=== PATIENT | female | born 1980 | race American Indian/Alaskan Native ===

== ENCOUNTER 2016-10-19 22:35 | Emergency (ER) | payer OTHER ==
[2016-10-19 22:48] VITALS: BP 193/126
[2016-10-19] MEDS ORDERED: NORVASC PO ONE (23:09)
[2016-10-19] MEDS ORDERED: TYLENOL PO ONE (23:17)
[2016-10-20 01:01] LABS: Bilirubin,Urine NEG (Negative); Blood,Urine NEG (Negative); Ketones,Urine NEG (Negative); Leukocyte Esterase,Urine NEG (Negative); Mucus,Urine FEW /HPF; Nitrite,Urine NEG (Negative); Protein,Urine <15 mg/dL mg/dL (Negative); Urobilinogen,Urine < 2.0 mg/dL (<2.0); WBC,Urine < 1.0 /HPF (0.0-6.0)
[2016-10-20 02:34] LABS: Basophils % (Auto) 0.3 % (0.0-1.8); Eosinophils % (Auto) 0.1 % (0.0-4.3); Hematocrit 39.4 % (30.3-42.9); Hemoglobin 12.7 gm/dl (10.1-14.3); Mean Corpuscular HGB Conc 32 % (30-34); Mean Corpuscular Hemoglobin 29 pg (28-32); Mean Corpuscular Volume 90 fl (79-97); Platelet Count 276 K/mm3 (140-440); Red Blood Count 4.39 M/mm3 (3.65-5.03); Red Cell Distribution Width 13.6 % (13.2-15.2); White Blood Count 11.7 K/mm3 (4.5-11.0)
[2016-10-20 02:50] LABS: Alanine Aminotransferase 10 units/L (7-56); Albumin 4.3 g/dL (3.9-5); Albumin/Globulin Ratio 1.2 %; Alkaline Phosphatase 112 units/L (35-129); BUN/Creatinine Ratio 13.33; Bilirubin,Total 0.3 mg/dL (0.1-1.2); Blood Urea Nitrogen 8 mg/dL (7-17); Calcium 9.2 mg/dL (8.4-10.2); Carbon Dioxide 26 mmol/L (22-30); Chloride 100.7 mmol/L (98-107); Glucose 123 mg/dL (65-100); Lipase 24 units/L (13-60); Potassium 4.3 mmol/L (3.6-5.0); Sodium 141 mmol/L (137-145)
[2016-10-20 02:52] LABS: Anion Gap 19 mmol/L
--- NOTE | 2016-10-21 18:44 | ED Elopement Review ---
ED Pt Elopement review - Results review Lab results: Laboratory Tests 10/20/16 10/20/16 10/20/16 00:25 02:07 02:07 WBC 11.7 H RBC 4.39 Hgb 12.7 Hct 39.4 MCV 90 MCH 29 MCHC 32 RDW 13.6 Plt Count 276 Lymph % (Auto) 10.4 L Early % (Auto) 1.5 Eos % (Auto) 0.1 Baso % (Auto) 0.3 Lymph # 1.2 Early # 0.2 Eos # 0.0 Baso # 0.0 Seg Neutrophils % 87.7 H Seg Neutrophils # 10.3 H Sodium 141 Potassium 4.3 Chloride 100.7 Carbon Dioxide 26 Anion Gap 19 BUN 8 Creatinine 0.6 L Estimated GFR > 60 BUN/Creatinine Ratio 13.33 Glucose 123 H Calcium 9.2 Total Bilirubin 0.3 AST 13 ALT 10 Alkaline Phosphatase 112 Total Protein 8.0 Albumin 4.3 Albumin/Globulin Ratio 1.2 Lipase 24 HCG, Qual Urine Color Yellow Urine Turbidity Cloudy Urine pH 8.0 H Ur Specific [place] 1.014 Urine Protein <15 mg/dl Urine Glucose (UA) Neg Urine Ketones Neg Urine Blood Neg Urine Nitrite Neg Urine Bilirubin Neg Urine Urobilinogen < 2.0 Ur Leukocyte Esterase Neg Urine WBC (Auto) < 1.0 Urine RBC (Auto) 3.0 U Epithel Cells (Auto) 3.0 Amorphous Crystals 3+ Urine Mucus Few Urine HCG, Qual Negative 10/20/16 02:17 WBC RBC Hgb Hct MCV MCH MCHC RDW Plt Count Lymph % (Auto) Early % (Auto) Eos % (Auto) Baso % (Auto) Lymph # Early # Eos # Baso # Seg Neutrophils % Seg Neutrophils # Sodium Potassium Chloride Carbon Dioxide Anion Gap BUN Creatinine Estimated GFR BUN/Creatinine Ratio Glucose Calcium Total Bilirubin AST ALT Alkaline Phosphatase Total Protein Albumin Albumin/Globulin Ratio Lipase HCG, Qual Negative Urine Color Urine Turbidity Urine pH Ur Specific [place] Urine Protein Urine Glucose (UA) Urine Ketones Urine Blood Urine Nitrite Urine Bilirubin Urine Urobilinogen Ur Leukocyte Esterase Urine WBC (Auto) Urine RBC (Auto) U Epithel Cells (Auto) Amorphous Crystals Urine Mucus Urine HCG, Qual - Call Back decision Pt Call Back Decision: No action required
== END 2016-10-20 02:18 | disposition left against medical advice (07) ==
LOC: ED 22:35
DX: R10.10 Upper abdominal pain, unspecified (principal); R11.2 Nausea with vomiting, unspecified; Z53.21 Procedure and treatment not carried out due to patient leaving prior to being seen by health care provider
CPT/HCPCS: 36415; 80053; 81001; 81025; 83690; 84703; 85025

== ENCOUNTER 2017-07-22 03:39 | Emergency (ER) | payer OTHER, MEDICAID ==
[2017-07-22] MEDS ORDERED: TYLENOL PO ONE (05:06)
[2017-07-22] MEDS ORDERED: TORADOL IV ONE (05:06)
[2017-07-22] MEDS ORDERED: TORADOL ONE (05:14)
[2017-07-22] MEDS ORDERED: TYLENOL ONE (05:14)
[2017-07-22 05:28] LABS: Bilirubin,Urine NEG (Negative); Blood,Urine LG (Negative); Ketones,Urine NEG (Negative); Leukocyte Esterase,Urine NEG (Negative); Nitrite,Urine NEG (Negative); Protein,Urine <15 mg/dL mg/dL (Negative); Urobilinogen,Urine < 2.0 mg/dL (<2.0)
[2017-07-22 05:46] LABS: Hemoglobin 9.2 gm/dl (10.1-14.3); Mean Corpuscular HGB Conc 33 % (30-34); Mean Corpuscular Hemoglobin 28 pg (28-32); Mean Corpuscular Volume 85 fl (79-97); Platelet Count 278 K/mm3 (140-440); Red Blood Count 3.27 M/mm3 (3.65-5.03); Red Cell Distribution Width 13.6 % (13.2-15.2); White Blood Count 7.5 K/mm3 (4.5-11.0)
[2017-07-22 06:13] LABS: Alanine Aminotransferase 11 units/L (7-56); Albumin 2.6 g/dL (3.9-5); Albumin/Globulin Ratio 0.8 %; Alkaline Phosphatase 91 units/L (35-129); Anion Gap 17 mmol/L; BUN/Creatinine Ratio 12; Blood Urea Nitrogen 6 mg/dL (7-17); Calcium 8.3 mg/dL (8.4-10.2); Carbon Dioxide 22 mmol/L (22-30); Chloride 106.3 mmol/L (98-107); Glucose 90 mg/dL (65-100); Sodium 141 mmol/L (137-145); Total Protein 5.8 g/dL (6.3-8.2)
[2017-07-22] MEDS ORDERED: NORMODYNE PO ONE ×2 (07:00→07:25)
--- NOTE | 2017-07-22 07:04 | Emergency Department Report ---
ED Headache HPI - General Chief Complaint: High BP Stated Complaint: HEADACHE Time Seen by Provider: 07/22/17 06:14 Source: patient Exam Limitations: no limitations - History of Present Illness Initial Comments: 36-year-old female with a past medical history of hypertension and migraines presents to the hospital complaints of headache and elevated blood pressure. Patient has had elevated blood pressure and has been off hypertensive medications this delivery of her first child in 2005. Patient just had a C- section delivery about one week ago. During her patient's blood pressure was controlled with labetalol 200 mg twice a day but was increased to 300 mg twice a day after her delivery. Patient denies having preeclampsia or eclampsia. Yesterday patient had a continuous frontal headache and when she checked her blood pressure systolic was 200 and diastolic was approximately 110s. She has been compliant with her labetalol last dose last evening. She's complained of lower extremity edema since her delivery. She also has had ongoing lower abdominal pain secondary to . Allergies/Adverse Reactions: Allergies No Known Allergies Allergy (Unverified 12/10/15 18:06) Home Medications: Ambulatory Orders Acetaminophen/Codeine [Tylenol #3] 1 tab PO Q6H PRN #15 tab 12/10/15 methOCARBAMOL [Robaxin TAB] 500 mg PO BID #20 tab 12/10/15 Docusate Sodium [Stool Softener] 100 mg PO BID 07/22/17 Ferrous Sulfate [Feosol] 325 mg PO BID 07/22/17 Ibuprofen [Motrin 800 MG tab] 800 mg PO TID PRN 07/22/17 Labetalol HCl 300 mg PO BID 07/22/17 Oxycodone HCl/Acetaminophen [Percocet 2.5/325 mg] 5 - 325 mg PO Q6HR PRN oxyCODONE /ACETAMINOPHEN [Percocet 5/325] 1 tab PO Q6HR PRN 07/22/17 ED Review of Systems ROS: Stated complaint: HEADACHE Other details as noted in HPI Comment: All other systems reviewed and negative Other: Constitutional: No fevers chills Eyes: No eye pain visual changes ENT: No ear pain or throat pain Neck: Denies pain Respiratory: Denies cough wheezing shortness of breath Cardiovascular: Denies chest pain, palpitations, syncope GI: Denies nausea, vomiting, diarrhea : Denies dysuria Musculoskeletal: Denies back pain Skin: Denies rash, lesions, erythema Neurologic: As per HPI, denies weakness or numbness Psychiatric: Denies suicidal ideation, hallucinations ED Past Medical Hx - Past Medical History Hx Hypertension: Yes Hx Headaches / Migraines: Yes - Surgical History Additional Surgical History: right arm surgery. x 3. GALLBLADDER - Social History Smoking Status: Never Smoker Substance Use Type: None - Medications Home Medications: Home Medications Medication Instructions Recorded Confirmed Last Taken Type Acetaminophen/Codeine [Tylenol #3] 1 tab PO Q6H PRN #15 tab 12/10/15 07/22/17 Unknown Rx methOCARBAMOL [Robaxin TAB] 500 mg PO BID #20 tab 12/10/15 07/22/17 Unknown Rx Docusate Sodium [Stool Softener] 100 mg PO BID 07/22/17 07/22/17 Unknown History Ferrous Sulfate [Feosol] 325 mg PO BID 07/22/17 07/22/17 Unknown History Ibuprofen [Motrin 800 MG tab] 800 mg PO TID PRN 07/22/17 07/22/17 Unknown History Labetalol HCl 300 mg PO BID 07/22/17 07/22/17 Unknown History Oxycodone HCl/Acetaminophen 5 - 325 mg PO Q6HR PRN 07/22/17 07/22/17 Unknown History [Percocet 2.5/325 mg] oxyCODONE /ACETAMINOPHEN [Percocet 1 tab PO Q6HR PRN 07/22/17 07/22/17 Unknown History 5/325] ED Physical Exam - General Limitations: No Limitations - Other Other exam information: General: No limitations, patient is alert in no acute distress Head exam: Atraumatic, normocephalic Eyes exam: Normal appearance, pupils equal reactive to light, extraocular movements intact ENT: Moist mucous membrane, normal oropharynx Neck exam: Normal inspection, full range of motion, no meningismus nontender Respiratory exam: Clear to auscultation bilateral, no wheezes, rales, crackles Cardiovascular: Normal rate and rhythm, normal heart sounds Abdomen: Soft, nondistended, with normal bowel sounds, no rebound, or guarding. Tender in lower abdomen, scar without erythema or dehiscence Extremity: Full range of motion normal inspection no deformit, no pitting edema noted Back: Normal Inspection, full range of motion, no tenderness Neurologic: Alert, oriented x3, cranial nerves intact, no motor or sensory deficit Psychiatric: normal affect, normal mood Skin: Warm, dry, intact ED Course Vital Signs 07/22/17 07/22/17 07/22/17 03:51 03:56 03:59 Temperature 98.8 F Pulse Rate Respiratory Rate Blood Pressure 155/83 Blood Pressure [Left] O2 Sat by Pulse 100 98 99 Oximetry 07/22/17 07/22/17 07/22/17 04:00 04:03 04:05 Temperature Pulse Rate 99 H 97 H 103 H Respiratory 21 24 14 Rate Blood Pressure 145/86 145/86 145/86 Blood Pressure [Left] O2 Sat by Pulse 99 99 99 Oximetry 07/22/17 07/22/17 07/22/17 04:07 04:09 04:11 Temperature Pulse Rate 102 H 102 H 103 H Respiratory 22 22 20 Rate Blood Pressure 145/86 145/86 145/86 Blood Pressure [Left] O2 Sat by Pulse 99 100 99 Oximetry 07/22/17 07/22/17 07/22/17 04:13 04:15 04:27 Temperature Pulse Rate 103 H 107 H 98 H Respiratory 22 15 14 Rate Blood Pressure 145/86 145/86 145/86 Blood Pressure [Left] O2 Sat by Pulse 99 98 Oximetry 07/22/17 07/22/17 07/22/17 04:28 04:30 04:33 Temperature Pulse Rate 90 97 H 100 H Respiratory 11 L 26 H 27 H Rate Blood Pressure 144/82 145/76 145/76 Blood Pressure [Left] O2 Sat by Pulse 99 99 99 Oximetry 07/22/17 07/22/17 07/22/17 04:35 04:37 04:39 Temperature Pulse Rate 95 H 97 H 93 H Respiratory 17 28 H 11 L Rate Blood Pressure 145/76 145/76 145/76 Blood Pressure [Left] O2 Sat by Pulse 99 100 100 Oximetry 07/22/17 07/22/17 07/22/17 04:41 04:43 04:45 Temperature Pulse Rate 94 H 91 H 93 H Respiratory 17 18 24 Rate Blood Pressure 145/76 145/76 158/94 Blood Pressure [Left] O2 Sat by Pulse 100 99 98 Oximetry 07/22/17 07/22/17 07/22/17 04:47 04:49 05:27 Temperature Pulse Rate 94 H 91 H 81 Respiratory 17 13 24 Rate Blood Pressure 158/94 158/94 161/89 Blood Pressure [Left] O2 Sat by Pulse 100 99 97 Oximetry 07/22/17 07/22/17 07/22/17 05:29 05:31 05:33 Temperature Pulse Rate 81 84 97 H Respiratory 14 27 H 22 Rate Blood Pressure 161/89 161/89 161/89 Blood Pressure [Left] O2 Sat by Pulse 98 98 98 Oximetry 07/22/17 07/22/17 07/22/17 05:35 05:37 05:39 Temperature Pulse Rate 89 84 86 Respiratory 19 23 24 Rate Blood Pressure 161/89 161/89 161/89 Blood Pressure [Left] O2 Sat by Pulse 99 100 99 Oximetry 07/22/17 07/22/17 07/22/17 05:41 05:43 05:45 Temperature Pulse Rate 87 95 H 87 Respiratory 22 19 18 Rate Blood Pressure 161/89 161/89 154/88 Blood Pressure [Left] O2 Sat by Pulse 99 99 98 Oximetry 07/22/17 07/22/17 07/22/17 05:47 05:49 05:51 Temperature Pulse Rate 85 86 83 Respiratory 24 24 28 H Rate Blood Pressure 154/88 154/88 154/88 Blood Pressure [Left] O2 Sat by Pulse 99 99 98 Oximetry 07/22/17 07/22/17 07/22/17 05:53 05:55 05:57 Temperature Pulse Rate 85 85 81 Respiratory 22 25 H 25 H Rate Blood Pressure 154/88 154/88 154/88 Blood Pressure [Left] O2 Sat by Pulse 98 98 99 Oximetry 07/22/17 07/22/17 07/22/17 05:58 06:10 06:13 Temperature Pulse Rate 82 86 Respiratory 21 13 Rate Blood Pressure 154/88 154/88 162/84 Blood Pressure [Left] O2 Sat by Pulse 98 99 98 Oximetry 07/22/17 07/22/17 07/22/17 06:15 06:16 06:19 Temperature Pulse Rate 82 83 83 Respiratory 23 29 H 30 H Rate Blood Pressure 167/80 167/80 167/80 Blood Pressure [Left] O2 Sat by Pulse 97 97 98 Oximetry 07/22/17 07/22/17 07/22/17 06:21 06:23 06:25 Temperature Pulse Rate 78 84 87 Respiratory 18 16 22 Rate Blood Pressure 167/80 167/80 167/80 Blood Pressure [Left] O2 Sat by Pulse 99 99 98 Oximetry 07/22/17 07/22/17 07/22/17 06:27 06:29 06:30 Temperature Pulse Rate 85 93 H 87 Respiratory 22 14 25 H Rate Blood Pressure 167/80 167/80 160/89 Blood Pressure [Left] O2 Sat by Pulse 100 99 100 Oximetry 07/22/17 07/22/17 07/22/17 06:33 06:35 06:37 Temperature Pulse Rate 90 91 H 86 Respiratory 19 13 22 Rate Blood Pressure 160/89 160/89 160/89 Blood Pressure [Left] O2 Sat by Pulse 99 100 98 Oximetry 07/22/17 07/22/17 07/22/17 06:39 06:41 06:43 Temperature Pulse Rate 87 89 87 Respiratory 14 27 H 25 H Rate Blood Pressure 160/89 160/89 160/89 Blood Pressure [Left] O2 Sat by Pulse 99 100 99 Oximetry 07/22/17 07/22/17 07/22/17 06:45 06:47 06:49 Temperature Pulse Rate 87 94 H 86 Respiratory 28 H 16 16 Rate Blood Pressure 149/86 149/86 149/86 Blood Pressure [Left] O2 Sat by Pulse 97 100 100 Oximetry 07/22/17 07/22/17 07/22/17 06:51 06:53 06:55 Temperature Pulse Rate 87 88 82 Respiratory 12 19 16 Rate Blood Pressure 154/88 154/88 154/88 Blood Pressure [Left] O2 Sat by Pulse 99 100 99 Oximetry 07/22/17 07/22/17 07/22/17 06:57 06:59 07:00 Temperature Pulse Rate 83 92 H 88 Respiratory 17 16 13 Rate Blood Pressure 154/88 154/88 146/75 Blood Pressure [Left] O2 Sat by Pulse 98 97 98 Oximetry 07/22/17 07/22/17 07/22/17 07:03 07:05 07:07 Temperature Pulse Rate 91 H 88 90 Respiratory 18 19 21 Rate Blood Pressure 146/75 146/75 146/75 Blood Pressure [Left] O2 Sat by Pulse 98 99 98 Oximetry 07/22/17 07/22/17 07/22/17 07:09 07:11 07:13 Temperature Pulse Rate 85 99 H 83 Respiratory 24 16 12 Rate Blood Pressure 146/75 146/75 146/75 Blood Pressure [Left] O2 Sat by Pulse 99 98 98 Oximetry 07/22/17 07/22/17 07/22/17 07:15 07:17 07:19 Temperature Pulse Rate 82 81 79 Respiratory 16 27 H 24 Rate Blood Pressure 153/84 153/84 153/84 Blood Pressure [Left] O2 Sat by Pulse 98 98 97 Oximetry 07/22/17 07/22/17 07/22/17 07:21 07:22 07:25 Temperature Pulse Rate 83 80 85 Respiratory 14 25 H 22 Rate Blood Pressure 153/84 153/84 146/75 Blood Pressure [Left] O2 Sat by Pulse 99 98 99 Oximetry 07/22/17 07/22/17 07/22/17 07:27 07:28 07:30 Temperature Pulse Rate 81 85 82 Respiratory 11 L 11 L Rate Blood Pressure 146/75 146/75 153/84 Blood Pressure [Left] O2 Sat by Pulse 100 100 Oximetry 07/22/17 07/22/17 07/22/17 07:41 07:43 07:45 Temperature Pulse Rate 92 H 94 H 82 Respiratory 16 19 31 H Rate Blood Pressure 146/75 146/75 159/85 Blood Pressure [Left] O2 Sat by Pulse 100 100 99 Oximetry 07/22/17 07/22/17 07/22/17 07:47 07:49 07:51 Temperature Pulse Rate 89 92 H 90 Respiratory 18 13 18 Rate Blood Pressure 159/85 159/85 159/85 Blood Pressure [Left] O2 Sat by Pulse 100 100 100 Oximetry 07/22/17 07/22/17 07/22/17 07:53 07:55 07:57 Temperature Pulse Rate 102 H 87 87 Respiratory 18 27 H 14 Rate Blood Pressure 159/85 159/85 159/85 Blood Pressure [Left] O2 Sat by Pulse 100 99 99 Oximetry 07/22/17 07/22/17 07/22/17 07:59 08:00 08:03 Temperature Pulse Rate 85 85 88 Respiratory 32 H 17 31 H Rate Blood Pressure 159/85 156/89 156/89 Blood Pressure [Left] O2 Sat by Pulse 99 97 100 Oximetry 07/22/17 07/22/17 07/22/17 08:05 08:07 08:09 Temperature Pulse Rate 96 H 89 82 Respiratory 21 34 H 19 Rate Blood Pressure 156/89 156/89 156/89 Blood Pressure [Left] O2 Sat by Pulse 98 98 100 Oximetry 07/22/17 07/22/17 07/22/17 08:11 08:13 08:15 Temperature Pulse Rate 91 H 90 83 Respiratory 29 H 23 30 H Rate Blood Pressure 156/89 156/89 148/90 Blood Pressure [Left] O2 Sat by Pulse 99 99 99 Oximetry 07/22/17 07/22/17 07/22/17 08:17 08:19 08:21 Temperature Pulse Rate 84 84 87 Respiratory 28 H 16 28 H Rate Blood Pressure 148/90 148/90 148/90 Blood Pressure [Left] O2 Sat by Pulse 99 100 99 Oximetry 07/22/17 07/22/17 07/22/17 08:23 08:25 08:27 Temperature Pulse Rate 89 85 87 Respiratory 25 H 29 H 29 H Rate Blood Pressure 153/84 153/84 153/84 Blood Pressure [Left] O2 Sat by Pulse 99 99 97 Oximetry 07/22/17 08:33 Temperature Pulse Rate 82 Respiratory 18 Rate Blood Pressure Blood Pressure 142/84 [Left] O2 Sat by Pulse Oximetry - Reevaluation(s) Reevaluation #1: 07/22/17 07:04 Patient received Toradol and Tylenol prior to my evaluation with resolution of headache Reevaluation #2: 07/22/17 08:39 Patient remains pain free after receiving meds. BP trending downward one hour status post labetalol. - Consultations Consultation #1: 07/22/17 07:25 a Case discussed with front end loader driver physician for Dr. Turner, Dr Baeza, rec f/u on Monday for reassessment. Agrees no signs of preeclampsia at this labs,UA, and symptoms. ED Medical Decision Making - Lab Data Result diagrams: 07/22/17 05:30 07/22/17 05:30 Lab Results 07/22/17 07/22/17 07/22/17 Range/Units 04:30 05:30 05:30 WBC 7.5 (4.5-11.0) K/mm3 RBC 3.27 L (3.65-5.03) M/mm3 Hgb 9.2 L (10.1-14.3) gm/dl Hct 28.0 L (30.3-42.9) % MCV 85 (79-97) fl MCH 28 (28-32) pg MCHC 33 (30-34) % RDW 13.6 (13.2-15.2) % Plt Count 278 (140-440) K/mm3 Sodium 141 (137-145) mmol/L Potassium 4.0 (3.6-5.0) mmol/L Chloride 106.3 (98-107) mmol/L Carbon Dioxide 22 (22-30) mmol/L Anion Gap 17 mmol/L BUN 6 L (7-17) mg/dL Creatinine 0.5 L (0.7-1.2) mg/dL Estimated GFR > 60 ml/min BUN/Creatinine Ratio 12 % Glucose 90 (65-100) mg/dL Calcium 8.3 L (8.4-10.2) mg/dL Total Bilirubin 0.20 (0.1-1.2) mg/dL AST 13 (5-40) units/L ALT 11 (7-56) units/L Alkaline Phosphatase 91 (35-129) units/L Total Protein 5.8 L (6.3-8.2) g/dL Albumin 2.6 L (3.9-5) g/dL Albumin/Globulin Ratio 0.8 % Urine Color Red (Yellow) Urine Turbidity Clear (Clear) Urine pH 7.0 (5.0-7.0) Ur Specific [place] 1.003 (1.003-1.030) Urine Protein <15 mg/dl (Negative) mg/dL Urine Glucose (UA) Neg (Negative) mg/dL Urine Ketones Neg (Negative) mg/dL Urine Blood Lg (Negative) Urine Nitrite Neg (Negative) Urine Bilirubin Neg (Negative) Urine Urobilinogen < 2.0 (<2.0) mg/dL Ur Leukocyte Esterase Neg (Negative) Urine WBC (Auto) 1.0 (0.0-6.0) /HPF Urine RBC (Auto) 1.0 (0.0-6.0) /HPF U Epithel Cells (Auto) 3.0 (0-13.0) /HPF Hyaline Casts 1 /LPF - Medical Decision Making At this time, pt does not meet criteria for preeclampsia. She has chronic hypertension that has been more uncontrollable status post delivery. This was discussed with her FLORIST MANAGER doctor who is in agreement not preeclamptic at this time patient may follow up as outpatient on Monday for reassessment and possible medication adjustment. Patient's reported edema has resolved at this time with elevation of legs and in ED - Differential Diagnosis preeclampsia, chronic hypertension, intracranial abnormality Critical Care Time: No Critical care attestation.: If time is entered above; I have spent that time in minutes in the direct care of this critically ill patient, excluding procedure time. ED Disposition Clinical Impression: anemia, Uncontrolled hypertension Disposition: TO HOME OR SELFCARE Is pt being admited?: No Does the pt Need Aspirin: No Condition: Stable Instructions: Anemia (ED), Chronic Hypertension (ED) Additional Instructions: Continue to monitor your blood pressure. Continue to take your medications as prescribed. Follow-up with the FLORIST MANAGER doctor on Monday for reassessment. You may take Motrin or Tylenol as needed for pain. Referrals: MD Shane [Other] - 07/24/17 Time of Disposition: 08:41
[2017-07-22] MEDS ORDERED: NORMODYNE PO NR ×2 (08:00)
[2017-07-22 08:34] VITALS: BP 142/84
== END 2017-07-22 09:10 | disposition home or self-care (01) ==
LOC: ED 03:39
DX: O90.81 Anemia of the puerperium (principal); I10 Essential (primary) hypertension; G43.909 Migraine, unspecified, not intractable, without status migrainosus
CPT/HCPCS: 36415; 80053; 81001; 85027; 96374; 99284; J1885

== ENCOUNTER 2019-04-15 22:46 | Emergency (ER) | payer MEDICAID, OTHER ==
[2019-04-15] MEDS ORDERED: ASPIRIN PO ONE (23:09)
[2019-04-15] MEDS ORDERED: ULTRAM PO ONE (23:48)
[2019-04-15] MEDS ORDERED: IBUPROFEN PO ONE (23:48)
--- NOTE | 2019-04-15 23:52 | XRay Report ---
CHEST 1 VIEW INDICATION / CLINICAL INFORMATION: Chest Pain. COMPARISON: None available. FINDINGS: SUPPORT DEVICES: None. HEART / MEDIASTINUM: No significant abnormality. LUNGS / PLEURA: No significant pulmonary or pleural abnormality. No pneumothorax. ADDITIONAL FINDINGS: No significant additional findings. IMPRESSION: 1. No acute findings. Signer Name: Kwame Manriquez MD Signed: 04/15/2019 11:47 PM Workstation Name: [id number]
[2019-04-16 00:17] LABS: BUN/Creatinine Ratio 14; Blood Urea Nitrogen 10 mg/dL (7-17); Calcium 9.5 mg/dL (8.4-10.2); Hemolysis Index 4
[2019-04-16 00:20] LABS: Basophils % (Auto) 0.5 % (0.0-1.8); Eosinophils # (Auto) 0.6 K/mm3 (0.0-0.4); Eosinophils % (Auto) 6.9 % (0.0-4.3); Hematocrit 33.1 % (30.3-42.9); Hemoglobin 10.9 gm/dl (10.1-14.3); Lymphocytes # (Auto) 2.9 K/mm3 (1.2-5.4); Lymphocytes % (Auto) 35.5 % (13.4-35.0); Mean Corpuscular HGB Conc 33 % (30-34); Mean Corpuscular Volume 85 fl (79-97); Monocytes # (Auto) 0.6 K/mm3 (0.0-0.8); Monocytes % (Auto) 7.9 % (0.0-7.3); Platelet Count 367 K/mm3 (140-440); Red Blood Count 3.88 M/mm3 (3.65-5.03); Red Cell Distribution Width 14.7 % (13.2-15.2)
[2019-04-16] MEDS ORDERED: FLONASE NS ONE (01:18)
--- NOTE | 2019-04-16 01:18 | Emergency Department Report ---
<KAYE ARMENTA - Last Filed: 04/16/19 01:14> ED Chest Pain HPI - General Chief Complaint: Chest Pain Stated Complaint: CHEST PAIN/SOB Time Seen by Provider: 04/15/19 23:41 Source: patient Mode of arrival: Ambulatory Limitations: No Limitations - History of Present Illness Initial Comments: Patient is a 38-year-old Female who is going to have some left chest discomfort been present for approximately week. Patient states she feels very congested and feels as though she has a sensation she is a clear throat. Patient states t here is pain when she takes a deep breath. She denies cough. Patient states that there's been no fever nausea vomiting or trauma. Patient states is sharp pain in the left chest. Pain is worse in the last 2-3 days. Congestion is present for week. Severity scale (0 -10): 7 Quality: sharp Consistency: constant Improves With: nothing Worsens With: movement, other (breathinfg) - Related Data Home Medications Medication Instructions Recorded Confirmed Last Taken Docusate Sodium [Stool Softener] 100 mg PO BID 07/22/17 07/22/17 Unknown Ferrous Sulfate [Feosol] 325 mg PO BID 07/22/17 07/22/17 Unknown Ibuprofen [Motrin 800 MG tab] 800 mg PO TID PRN 07/22/17 07/22/17 Unknown Labetalol HCl 300 mg PO BID 07/22/17 07/22/17 Unknown Oxycodone HCl/Acetaminophen 5 - 325 mg PO Q6HR PRN 07/22/17 07/22/17 Unknown [Percocet 2.5/325 mg] oxyCODONE /ACETAMINOPHEN [Percocet 1 tab PO Q6HR PRN 07/22/17 07/22/17 Unknown 5/325] Previous Rx's Medication Instructions Recorded Last Taken Type Acetaminophen/Codeine [Tylenol #3] 1 tab PO Q6H PRN #15 tab 12/10/15 Unknown Rx methOCARBAMOL [Robaxin TAB] 500 mg PO BID #20 tab 12/10/15 Unknown Rx HYDROcodone/APAP 5-325 [[place] 1 each PO Q6HR PRN #10 tablet 04/16/19 Unknown Rx 5/325] Prednisone [predniSONE 10 mg 10 mg PO .TAPER #1 tab.ds.pk 04/16/19 Unknown Rx (6-Day Pack, 21 Tabs)] Allergies Allergy/AdvReac Type Severity Reaction Status Date / Time No Known Allergies Allergy Verified 04/15/19 22:51 Heart Score - HEART Score History: Slightly suspicious EKG: Normal Age: < 45 Risk factors: No known risk factors Troponin: < normal limit HEART Score: 0 ED Review of Systems Comment: All other systems reviewed and negative ED Past Medical Hx - Past Medical History Hx Hypertension: Yes Hx Headaches / Migraines: Yes Hx Psychiatric Treatment: Yes (anexity and depression) - Surgical History Past Surgical History?: Yes Hx Cholecystectomy: Yes Additional Surgical History: right arm surgery. x 3. GALLBLADDER. tubal ligation - Social History Smoking Status: Never Smoker Substance Use Type: None - Medications Home Medications: Home Medications Medication Instructions Recorded Confirmed Last Taken Type Acetaminophen/Codeine [Tylenol #3] 1 tab PO Q6H PRN #15 tab 12/10/15 07/22/17 Unknown Rx methOCARBAMOL [Robaxin TAB] 500 mg PO BID #20 tab 12/10/15 07/22/17 Unknown Rx Docusate Sodium [Stool Softener] 100 mg PO BID 07/22/17 07/22/17 Unknown History Ferrous Sulfate [Feosol] 325 mg PO BID 07/22/17 07/22/17 Unknown History Ibuprofen [Motrin 800 MG tab] 800 mg PO TID PRN 07/22/17 07/22/17 Unknown History Labetalol HCl 300 mg PO BID 07/22/17 07/22/17 Unknown History Oxycodone HCl/Acetaminophen 5 - 325 mg PO Q6HR PRN 07/22/17 07/22/17 Unknown History [Percocet 2.5/325 mg] oxyCODONE /ACETAMINOPHEN [Percocet 1 tab PO Q6HR PRN 07/22/17 07/22/17 Unknown History 5/325] HYDROcodone/APAP 5-325 [[place] 1 each PO Q6HR PRN #10 tablet 04/16/19 Unknown Rx 5/325] Prednisone [predniSONE 10 mg 10 mg PO .TAPER #1 tab.ds.pk 04/16/19 Unknown Rx (6-Day Pack, 21 Tabs)] ED Physical Exam - General Limitations: No Limitations General appearance: alert, in no apparent distress - Head Head exam: Present: atraumatic, normocephalic - Eye Eye exam: Present: normal appearance, PERRL - ENT ENT exam: Present: mucous membranes moist - Neck Neck exam: Present: normal inspection - Respiratory Respiratory exam: Present: normal lung sounds bilaterally, chest wall tenderness (left anterior upper chest). Absent: respiratory distress, wheezes, rales, rhonchi - Cardiovascular Cardiovascular Exam: Present: regular rate, normal rhythm. Absent: systolic murmur, diastolic murmur, rubs, gallop - GI/Abdominal GI/Abdominal exam: Present: soft, normal bowel sounds. Absent: distended, tenderness, guarding, rebound - Extremities Exam Extremities exam: Present: normal inspection - Back Exam Back exam: Present: normal inspection - Neurological Exam Neurological exam: Present: alert, oriented X3 - Psychiatric Psychiatric exam: Present: normal affect, normal mood - Skin Skin exam: Present: warm, dry, intact, normal color. Absent: rash ED Course - Reevaluation(s) Reevaluation #1: 04/16/19 01:17 Patient is presenting with pleuritic left-sided chest pain. Patient states she's had some chest congestion and shortness of breath for approximately week but worsening pain over the last 2-3 days. Patient states a sharp type sensation worse with breathing. Patient had an elevated d-dimer. Emergency department. CT of the chest is none ordered. Patient's other laboratory studies within normal limits ED Medical Decision Making - Lab Data Result diagrams: 04/15/19 23:19 04/15/19 23:23 Lab Results 04/15/19 04/15/19 04/15/19 Range/Units 23:19 23:23 23:53 WBC 8.1 (4.5-11.0) K/mm3 RBC 3.88 (3.65-5.03) M/mm3 Hgb 10.9 (10.1-14.3) gm/dl Hct 33.1 (30.3-42.9) % MCV 85 (79-97) fl MCH 28 (28-32) pg MCHC 33 (30-34) % RDW 14.7 (13.2-15.2) % Plt Count 367 (140-440) K/mm3 Lymph % (Auto) 35.5 H (13.4-35.0) % [place] % (Auto) 7.9 H (0.0-7.3) % Eos % (Auto) 6.9 H (0.0-4.3) % Baso % (Auto) 0.5 (0.0-1.8) % Lymph # 2.9 (1.2-5.4) K/mm3 [place] # 0.6 (0.0-0.8) K/mm3 Eos # 0.6 H (0.0-0.4) K/mm3 Baso # 0.0 (0.0-0.1) K/mm3 Seg Neutrophils % 49.2 (40.0-70.0) % Seg Neutrophils # 4.0 (1.8-7.7) K/mm3 D-Dimer 364.47 H (0-234) ng/mlDDU Sodium 141 (137-145) mmol/L Potassium 4.2 (3.6-5.0) mmol/L Chloride 103.4 (98-107) mmol/L Carbon Dioxide 25 (22-30) mmol/L Anion Gap 17 mmol/L BUN 10 (7-17) mg/dL Creatinine 0.7 (0.7-1.2) mg/dL Estimated GFR > 60 ml/min BUN/Creatinine Ratio 14 % Glucose 89 (65-100) mg/dL Calcium 9.5 (8.4-10.2) mg/dL Troponin T < 0.010 (0.00-0.029) ng/mL - EKG Data -: EKG Interpreted by Ca EKG shows normal: sinus rhythm, axis, intervals, QRS complexes, ST-T waves Rate: tachycardia - Radiology Data Radiology results: report reviewed (CXR WNL) ED Disposition Clinical Impression: Chest pain Disposition: TO HOME OR SELFCARE Condition: Stable Instructions: Chest Pain (ED) Prescriptions: HYDROcodone/APAP 5-325 [[place] 5/325] 1 each PO Q6HR PRN #10 tablet PRN Reason: Pain Prednisone [predniSONE 10 mg (6-Day Pack, 21 Tabs)] 10 mg PO .TAPER #1 tab.ds.pk Referrals: MIKE DELONG MD [Staff Physician] - 3-[address] [facility] [Outside] - 3-5 Days <CLAUDY ARMENTA - Last Filed: 04/16/19 03:48> ED Review of Systems ROS: Stated complaint: CHEST PAIN/SOB Other details as noted in HPI ED Course Vital Signs 04/16/19 01:21 Temperature 98.9 F Pulse Rate 94 H Respiratory 18 Rate Blood Pressure 181/103 [Left] O2 Sat by Pulse 98 Oximetry ED Medical Decision Making - Lab Data Result diagrams: 04/15/19 23:19 04/15/19 23:23 Critical care attestation.: If time is entered above; I have spent that time in minutes in the direct care of this critically ill patient, excluding procedure time. ED Disposition Is pt being admited?: No Does the pt Need Aspirin: No
--- NOTE | 2019-04-16 02:54 | Cat Scan Report ---
CT angio chest INDICATION / CLINICAL INFORMATION: pleuritic cp with elevated ddimer. TECHNIQUE: Precontrast bolus timing images were obtained followed by postcontrast axial and reformatted images. 3-plane MIP reconstructions were performed at an independent workstation by the technologist. All CT scans at this location are performed using CT dose reduction for ALARA by means of automated exposure control. COMPARISON: None available. FINDINGS: Contrast enhancement of the pulmonary arteries is normal. No evidence of pulmonary embolus. No mediastinal abnormality. No acute pulmonary disease. There are no significant skeletal or upper abdominal abnormalities. IMPRESSION: 1. No evidence of pulmonary embolus or acute lung disease. Signer Name: Kwame Manriquez MD Signed: 04/16/2019 2:50 AM Workstation Name: [id number]
[2019-04-16 04:22] VITALS: BP 181/99
== END 2019-04-16 04:22 | disposition home or self-care (01) ==
LOC: ED 22:46
DX: R07.81 Pleurodynia (principal); I10 Essential (primary) hypertension; G43.909 Migraine, unspecified, not intractable, without status migrainosus; F41.9 Anxiety disorder, unspecified; F32.9 Major depressive disorder, single episode, unspecified; Z79.1 Long term (current) use of non-steroidal anti-inflammatories (NSAID); Z79.899 Other long term (current) drug therapy; Z90.49 Acquired absence of other specified parts of digestive tract; Z98.51 Tubal ligation status; Z98.890 Other specified postprocedural states
CPT/HCPCS: 36415; 71045; 71275; 80048; 84484; 85025; 85379; 93005; 93010; 99285; Q9967